=== PATIENT | female | born 1955 | race Caucasian/White ===

== ENCOUNTER 2020-06-03 11:48 | Inpatient (IN) | payer OTHER ==
--- NOTE | 2020-06-03 12:42 | EDM.PDOC ---
ED HPI GENERAL MEDICAL PROBLEM - General Chief Complaint: General Stated Complaint: CONFUSION/WEIGHT LOSS/NOT EATING OR DRINKING Time Seen by Provider: 06/03/20 12:20 Source of Information: Reports: Patient History Limitations: Reports: No Limitations - History of Present Illness INITIAL COMMENTS - FREE TEXT/NARRATIVE: pt reports that she has had weakness and recurrent headaches that she has seen a nuerologist in [facility] and has had a recent MRI and CT head which she reports had "an abnormality which is probably form " the pt is a poor historian and family is with the pt who reports the pt has had a cognitive decline over the past week with dizziness, no falls, pt denies any headaches at this time no hemiplegia, no nausea, no vomiting, no fever, no chills, pt is reporting that she is drinking "alot" the family reports the pt is not drinking much fluids - Related Data Allergies Allergy/AdvReac Type Severity Reaction Status Date / Time No Known Allergies Allergy Verified 10/20/14 10:49 Home Meds: Home Meds Famotidine 20 mg PO DAILY 06/03/20 [History] Ketorolac [Toradol] 10 mg PO ASDIRECTED 06/03/20 [History] Metoclopramide [Reglan] 10 mg PO ASDIRECTED 06/03/20 [History] Topiramate 50 mg PO BID 06/03/20 [History] ZOLMitriptan [Zomig] 2.5 mg PO ASDIRECTED 06/03/20 [History] diazePAM [Valium] 5 mg PO ASDIRECTED 06/03/20 [History] Past Medical History Gastrointestinal History: Reports: GERD Neurological History: Reports: Migraines - Past Surgical History GI Surgical History: Reports: Cholecystectomy Social & Family History - Tobacco Use Smoking Status *Q: Current Every Day Smoker Years of Tobacco use: 40 Packs/Tins Daily: 0.5 - Caffeine Use Caffeine Use: Reports: None - Recreational Drug Use Recreational Drug Type: Reports: Marijuana/Hashish ED ROS GENERAL - Review of Systems Review Of Systems: See Below Constitutional: Denies: Fever, Chills Cardiovascular: Denies: Chest Pain Endocrine: Reports: Fatigue GI/Abdominal: Denies: Abdominal Pain Musculoskeletal: Denies: Neck Pain, Shoulder Pain Neurological: Reports: Confusion, Dizziness ED EXAM, GENERAL - Physical Exam Exam: See Below Exam Limited By: No Limitations General Appearance: Alert, WD/WN, Other (slow responses, but responds appropriately) Throat/Mouth: Normal Inspection, Normal Lips, Normal Teeth, Normal Gums, Normal Oropharynx, Normal Voice, No Airway Compromise Head: Atraumatic, Normocephalic Neck: Normal Inspection, Supple, Non-Tender, Full Range of Motion Respiratory/Chest: No Respiratory Distress, Lungs Clear, Normal Breath Sounds, No Accessory Muscle Use, Chest Non-Tender Cardiovascular: Normal Peripheral Pulses, Regular Rate, Rhythm, No Edema, No Gallop, No JVD, No Murmur, No Rub GI/Abdominal: Normal Bowel Sounds, Soft, Non-Tender, No Organomegaly, No Distention, No Abnormal Bruit, No Mass Back Exam: Normal Inspection, Full Range of Motion, NT Extremities: Normal Inspection, Normal Range of Motion, Non-Tender, Normal Capillary Refill, No Pedal Edema Neurological: Alert, Oriented, CN II-XII Intact, Other (slow response) Skin Exam: Warm, Dry, Intact EKG INTERPRETATION EKG Date: 06/03/20 Time: 12:18 Rhythm: NSR [place]: LAD-Left [place] Deviation P-Wave: Present QRS: Normal EKG Interpretation Comments: mild depression 4-6, mild II,III, avf early repol Course - Vital Signs Last Recorded V/S: Last Vital Signs Temp 98.3 F 06/03/20 11:56 Pulse 83 06/03/20 11:56 Resp 20 06/03/20 11:56 BP 140/89 06/03/20 11:56 Pulse Ox 99 06/03/20 11:56 - Orders/Labs/Meds Orders: Active Orders 24 hr Category Date Time Status EKG Documentation Completion [RC] ASDIRECTED Care 06/03/20 12:06 Active CULTURE URINE [RM] Stat Lab 06/03/20 12:30 Received PTH, INTACT [REF] Stat Lab 06/03/20 13:30 Ordered Sodium Chloride 0.9% [Normal Saline] 1,000 ml Med 06/03/20 13:15 Active IV ASDIRECTED EKG 12 Lead [EK] Stat Ther 06/03/20 12:05 Ordered Medication Orders Sodium Chloride (Normal Saline) 1,000 mls @ 1,000 mls/hr IV ASDIRECTED ETHEL Last Admin: 06/03/20 13:15 Dose: 1,000 mls/hr Documented by: MONICA Labs: Laboratory Tests 06/03/20 06/03/20 06/03/20 Range/Units 12:15 12:15 12:30 WBC 6.65 (3.98-10.04) K/mm3 RBC 4.15 (3.98-5.22) M/mm3 Hgb 13.1 (11.2-15.7) gm/dl Hct 37.9 (34.1-44.9) % MCV 91.3 (79.4-94.8) fl MCH 31.6 (25.6-32.2) pg MCHC 34.6 (32.2-35.5) g/dl RDW Std Deviation 40.2 (36.4-46.3) fL Plt Count 310 (182-369) K/mm3 MPV 9.8 (9.4-12.3) fl Neut % (Auto) 60.5 (34.0-71.1) % Lymph % (Auto) 28.4 (19.3-51.7) % Chase % (Auto) 9.2 (4.7-12.5) % Eos % (Auto) 1.1 (0.7-5.8) Baso % (Auto) 0.6 (0.1-1.2) % Neut # (Auto) 4.03 (1.56-6.13) K/mm3 Lymph # (Auto) 1.89 (1.18-3.74) K/mm3 Chase # (Auto) 0.61 H (0.24-0.36) K/mm3 Eos # (Auto) 0.07 (0.04-0.36) K/mm3 Baso # (Auto) 0.04 (0.01-0.08) K/mm3 Sodium 143 (136-145) mEq/L Potassium 2.6 L (3.5-5.1) mEq/L Chloride 100 (98-107) mEq/L Carbon Dioxide 33 H (21-32) mEq/L Anion Gap 12.6 (5-15) BUN 45 H (7-18) mg/dL Creatinine 1.6 H (0.55-1.02) mg/dL Est Cr Clr Drug Dosing 28.19 mL/min Estimated GFR (MDRD) 33 (>60) mL/min BUN/Creatinine Ratio 28.1 H (14-18) Glucose 140 H (80-115) mg/dL Calcium 12.9 H (8.5-10.1) mg/dL Total Bilirubin 0.4 (0.2-1.0) mg/dL AST 20 (15-37) U/L ALT 25 (14-59) U/L Alkaline Phosphatase 66 (46-116) U/L Troponin I 0.020 (0.00-0.056) ng/mL Total Protein 7.8 (6.4-8.2) g/dl Albumin 4.1 (3.4-5.0) g/dl Globulin 3.7 gm/dL Albumin/Globulin Ratio 1.1 (1-2) TSH 3rd Generation 1.197 (0.358-3.74) uIU/mL Urine Color Yellow (Yellow) Urine Appearance Clear (Clear) Urine pH 6.5 (5.0-8.0) Ur Specific [place] 1.020 (1.005-1.030) Urine Protein 1+ H (Negative) Urine Glucose (UA) Negative (Negative) Urine Ketones 1+ H (Negative) Urine Occult Blood 1+ H (Negative) Urine Nitrite Negative (Negative) Urine Bilirubin 1+ H (Negative) Urine Urobilinogen 0.2 (0.2-1.0) Ur Leukocyte Esterase 1+ H (Negative) U Hyaline Cast (Auto) 30-40 H (0-5) /lpf Urine RBC 0-5 (0-5) /hpf Urine WBC 0-5 (0-5) /hpf Ur Squamous Epith Cells 0-5 (0-5) /hpf Urine Bacteria Few (FEW) /hpf Urine Mucus Few (FEW) /hpf Urine Opiates Screen (FVSWZK=443) Ur Buprenorphine Scrn (CUTOFF=10) Ur Oxycodone Screen (KMW1XD=091) Urine Methadone Screen (VBZGUJ=219) Ur Propoxyphene Screen (ZDWETI=182) Ur Barbiturates Screen (UVPEPG=361) Ur Tricyclics Screen (HBUJUG=817) Ur Phencyclidine Scrn (CUTOFF=25) Ur Amphetamine Screen (RTXOMQ=324) U Methamphetamines Scrn (QRMFTD=628) U Benzodiazepines Scrn (DACVLJ=797) U Cocaine Metab Screen (DFNYNS=961) U Marijuana (THC) Screen (CUTOFF=50) 06/03/20 Range/Units 12:39 WBC (3.98-10.04) K/mm3 RBC (3.98-5.22) M/mm3 Hgb (11.2-15.7) gm/dl Hct (34.1-44.9) % MCV (79.4-94.8) fl MCH (25.6-32.2) pg MCHC (32.2-35.5) g/dl RDW Std Deviation (36.4-46.3) fL Plt Count (182-369) K/mm3 MPV (9.4-12.3) fl Neut % (Auto) (34.0-71.1) % Lymph % (Auto) (19.3-51.7) % Chase % (Auto) (4.7-12.5) % Eos % (Auto) (0.7-5.8) Baso % (Auto) (0.1-1.2) % Neut # (Auto) (1.56-6.13) K/mm3 Lymph # (Auto) (1.18-3.74) K/mm3 Chase # (Auto) (0.24-0.36) K/mm3 Eos # (Auto) (0.04-0.36) K/mm3 Baso # (Auto) (0.01-0.08) K/mm3 Sodium (136-145) mEq/L Potassium (3.5-5.1) mEq/L Chloride (98-107) mEq/L Carbon Dioxide (21-32) mEq/L Anion Gap (5-15) BUN (7-18) mg/dL Creatinine (0.55-1.02) mg/dL Est Cr Clr Drug Dosing mL/min Estimated GFR (MDRD) (>60) mL/min BUN/Creatinine Ratio (14-18) Glucose (80-115) mg/dL Calcium (8.5-10.1) mg/dL Total Bilirubin (0.2-1.0) mg/dL AST (15-37) U/L ALT (14-59) U/L Alkaline Phosphatase (46-116) U/L Troponin I (0.00-0.056) ng/mL Total Protein (6.4-8.2) g/dl Albumin (3.4-5.0) g/dl Globulin gm/dL Albumin/Globulin Ratio (1-2) TSH 3rd Generation (0.358-3.74) uIU/mL Urine Color (Yellow) Urine Appearance (Clear) Urine pH (5.0-8.0) Ur Specific [place] (1.005-1.030) Urine Protein (Negative) Urine Glucose (UA) (Negative) Urine Ketones (Negative) Urine Occult Blood (Negative) Urine Nitrite (Negative) Urine Bilirubin (Negative) Urine Urobilinogen (0.2-1.0) Ur Leukocyte Esterase (Negative) U Hyaline Cast (Auto) (0-5) /lpf Urine RBC (0-5) /hpf Urine WBC (0-5) /hpf Ur Squamous Epith Cells (0-5) /hpf Urine Bacteria (FEW) /hpf Urine Mucus (FEW) /hpf Urine Opiates Screen Negative (TDVYYC=345) Ur Buprenorphine Scrn Negative (CUTOFF=10) Ur Oxycodone Screen Negative (CXR4IW=516) Urine Methadone Screen Negative (RTRZXQ=426) Ur Propoxyphene Screen Negative (IBVIQR=196) Ur Barbiturates Screen Negative (NIRAJR=580) Ur Tricyclics Screen Negative (MYXVQH=569) Ur Phencyclidine Scrn Negative (CUTOFF=25) Ur Amphetamine Screen Negative (OXJFBX=439) U Methamphetamines Scrn Negative (XPDQLK=428) U Benzodiazepines Scrn Negative (AUZDRW=688) U Cocaine Metab Screen Negative (DSHKXZ=354) U Marijuana (THC) Screen Negative (CUTOFF=50) Meds: Medications Generic Name Dose Route Start Last Admin Trade Name Freq PRN Reason Stop Dose Admin Sodium Chloride 1,000 mls @ 1,000 mls/hr 06/03/20 13:15 06/03/20 13:15 Normal Saline IV 1,000 mls/hr ASDIRECTED ETHEL Administration Discontinued Medications Generic Name Dose Route Start Last Admin Trade Name Freq PRN Reason Stop Dose Admin Potassium Chloride 40 meq 06/03/20 13:02 06/03/20 13:15 Klor-Con M20 PO 06/03/20 13:03 40 meq ONETIME ONE Administration head CT showed nothing acute per radiologist reports - Re-Assessments/Exams Free Text/Narrative Re-Assessment/Exam: 06/03/20 12:47 CXR --> interp by me NAD Free Text/Narrative Re-Assessment/Exam: 06/03/20 13:[address] Clinton who agrees to admit to observation for hypercalcemia and mental status changes Departure - Departure Time of Disposition: 13:39 Disposition: Refer to Observation Condition: Good Clinical Impression: Hypercalcemia, Hypokalemia Altered mental status Qualifiers: Altered mental status type: unspecified Qualified Code(s): R41.82 - Altered mental status, unspecified - Discharge Information Referrals: Jere Casanova MD [Primary Care Provider] - Forms: ED Department Discharge Sepsis Event Note (ED) - Evaluation Sepsis Screening Result: No Definite Risk - Focused Exam Vital Signs: Vital Signs Temp Pulse Resp BP Pulse Ox 06/03/20 11:56 98.3 F 83 20 140/89 99 - My Orders Last 24 Hours: My Active Orders 06/03/20 12:05 EKG 12 Lead [EK] Stat 06/03/20 12:06 EKG Documentation Completion [RC] ASDIRECTED 06/03/20 12:30 CULTURE URINE [RM] Stat 06/03/20 13:15 Sodium Chloride 0.9% [Normal Saline] 1,000 ml IV ASDIRECTED 06/03/20 13:30 PTH, INTACT [REF] Stat - Assessment/Plan Last 24 Hours: My Active Orders 06/03/20 12:05 EKG 12 Lead [EK] Stat 06/03/20 12:06 EKG Documentation Completion [RC] ASDIRECTED 06/03/20 12:30 CULTURE URINE [RM] Stat 06/03/20 13:15 Sodium Chloride 0.9% [Normal Saline] 1,000 ml IV ASDIRECTED 06/03/20 13:30 PTH, INTACT [REF] Stat
--- NOTE | 2020-06-03 12:58 | CT ---
Head CT Technique: Multiple axial sections through the brain were obtained. Intravenous contrast was not utilized. Comparison: Prior head CT study of 10/20/14. Findings: Ventricles along with basal cisterns and sulci over the convexities are mildly prominent. No abnormal parenchymal densities are seen. No evidence of intracranial hemorrhage. No midline shift or mass-effect is seen. Bone window settings were reviewed. Visualized mastoid sinuses and visualized paranasal sinuses show nothing acute. No acute calvarial finding is seen. Impression: 1. Nothing acute is appreciated on noncontrast head CT study. Diagnostic code #1 This report was dictated in MDT
[2020-06-03] MEDS ORDERED: Potassium Chloride 20 MEQ Tab.ER PO ONE (13:02)
--- NOTE | 2020-06-03 13:12 | CR ---
Chest: 2 views of the chest were obtained. Comparison: No prior chest imaging. Heart size is normal. Tortuous thoracic aorta is seen. Lungs are clear but hyperinflated. Mild degenerative change is seen within the spine. Surgical clips are seen within the upper abdomen. Impression: 1. Emphysematous change. 2. Other findings as noted above. Nothing acute is seen. Diagnostic code #2 This report was dictated in MDT
[2020-06-03] MEDS ORDERED: Sodium Chloride 0.9% 1,000 ML IV SCH (13:15)
--- NOTE | 2020-06-03 16:05 | PCM.HP.2 ---
H&P History of Present Illness - General Date of Service: 06/03/20 Admit Problem/Dx: Admission Diagnosis/Problem Admission Diagnosis/Problem Hypercalcemia/mental status changes. Source of Information: Patient, Family History Limitations: Reports: Altered Mental Status - History of Present Illness Initial Comments - Free Text/Narative: 64 year old female with hx of chronic headaches starting 3 to 4 months ago who started new med 3-4 days ago (injection zomig / ) and has increasing confusion and speech empairment and cognitive confusion. brou ght in by shanon who noticed her stumbling more than usual . 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 no hx of alcoholism but quit drinking 2-3 months ago sec to bilateral global headaches. no nausea but food taste is off and everything is salty . fluid intake reported as good by patient and bad by friends no visual changes /hearing changes/loss of smell / cva signs . hx of prev. mjh use use pattern not known. hypercalcemia and hypokalemia seen on panel. no diuretics and no known parathyroid/ thyroid or renal problems . reports no pain . headaches daily and started on multiple meds including valium/ toprimate/zomig. no real releif of headaches no surgerys. routine health screens normal(breast and mammograms in dec) and ros other diaz unclear and neg. by patient heavy smoker for many years. no oral or swallowing problems and no voice changes Onset of Symptoms: Reports: Gradual Symptom Onset Date: 06/01/20 Duration of Symptoms: Reports: Getting Worse Improves with: Reports: None Worsens with: Reports: None Associated Symptoms: Reports: Confusion - Related Data Allergies/Adverse Reactions: Allergies Allergy/AdvReac Type Severity Reaction Status Date / Time No Known Allergies Allergy Verified 10/20/14 10:49 Home Medications: Home Meds Famotidine 20 mg PO DAILY 06/03/20 [History] Ketorolac [Toradol] 10 mg PO Q6H PRN 06/03/20 [History] Metoclopramide [Reglan] 10 mg PO QID PRN 06/03/20 [History] Topiramate 50 mg PO BID 06/03/20 [History] ZOLMitriptan [Zolmitriptan] 2.5 mg PO ASDIRECTED 06/03/20 [History] diazePAM [Valium] 5 mg PO Q6H PRN 06/03/20 [History] Past Medical History Gastrointestinal History: Reports: None, GERD Neurological History: Reports: Migraines - Past Surgical History GI Surgical History: Reports: Cholecystectomy Social & Family History - Tobacco Use Smoking Status *Q: Current Every Day Smoker Years of Tobacco use: 40 Packs/Tins Daily: 0.5 - Caffeine Use Caffeine Use: Reports: None - Recreational Drug Use Recreational Drug Type: Reports: Marijuana/Hashish H&P Review of Systems - Review of Systems: Review Of Systems: See Below General: Reports: Weakness, Decreased Appetite, Weight Loss HEENT: Reports: No Symptoms Pulmonary: Reports: No Symptoms, Shortness of Breath, Cough Cardiovascular: Reports: No Symptoms Gastrointestinal: Reports: No Symptoms Genitourinary: Reports: No Symptoms Musculoskeletal: Reports: No Symptoms Skin: Reports: No Symptoms Psychiatric: Denies: Hallucinations (Auditory), Hallucinations (Visual) Neurological: Reports: Confusion, Dizziness, Headache, Paresthesia, Trouble Speaking, Difficulty Walking Hematologic/Lymphatic: Reports: No Symptoms Immunologic: Reports: No Symptoms Exam - Exam Exam: See Below - Vital Signs Vital Signs: Last Vital Signs Temp 36.8 C 06/03/20 11:56 Pulse 83 06/03/20 11:56 Resp 20 06/03/20 11:56 BP 140/89 06/03/20 11:56 Pulse Ox 99 06/03/20 11:56 Weight: 48.988 kg - Exam General: Alert, Oriented, 4 HEENT: PERRLA, Hearing Intact, Mucosa Moist & [place], Nares Patent, Normal Nasal Septum, Posterior Pharynx Clear, Conjunctiva Clear, EOMI, EACs Clear, TMs Clear Neck: Supple, Trachea Midline. No: Lymphadenopathy, Thyromegaly Lungs: Clear to Auscultation, Normal Respiratory Effort, Decreased Breath Sounds Cardiovascular: Regular Rate, Regular Rhythm GI/Abdominal Exam: Normal Bowel Sounds, Soft, Non-Tender, No Organomegaly, No Distention, No Abnormal Bruit, No Mass, Pelvis Stable (Female) Exam: Normal External Exam, Normal Speculum Exam, Normal Bimanual Exam, Deferred Rectal (Female) Exam: Normal Exam, Normal Rectal Tone, Deferred Back Exam: Normal Inspection, Full Range of Motion, NT Extremities: Normal Inspection, Normal Range of Motion, Non-Tender, No Pedal Edema, Normal Capillary Refill, Slow Capillary Refill Peripheral Pulses: 1+: Carotid (L), 2+: Carotid (R) Skin: Warm, Dry, Intact, Cool Neurological: Cranial Nerves Intact, Reflexes Equal Bilateral Neuro Extensive - Mental Status: Alert, Oriented x3, Normal Mood/Affect, Normal Cognition. No: Memory Intact Neuro Extensive - Motor, Sensory, Reflexes: CN II-XII Intact, Normal Gait, Normal Reflexes DTR: 0: Tricep (L), Tricep (R), Patella (L), Patella (R), 1+: Bicep (L), Bicep (R), Achilles (L), Achilles (R) Psychiatric: Alert, Normal Affect, Normal Mood Physical Exam Comments:: weight loss and dysarthria evident. - Patient Data Lab Results Last 24 hrs: Laboratory Results - last 24 hr 06/03/20 06/03/20 06/03/20 Range/Units 12:15 12:15 12:30 WBC 6.65 (3.98-10.04) K/mm3 RBC 4.15 (3.98-5.22) M/mm3 Hgb 13.1 (11.2-15.7) gm/dl Hct 37.9 (34.1-44.9) % MCV 91.3 (79.4-94.8) fl MCH 31.6 (25.6-32.2) pg MCHC 34.6 (32.2-35.5) g/dl RDW Std Deviation 40.2 (36.4-46.3) fL Plt Count 310 (182-369) K/mm3 MPV 9.8 (9.4-12.3) fl Neut % (Auto) 60.5 (34.0-71.1) % Lymph % (Auto) 28.4 (19.3-51.7) % [place] % (Auto) 9.2 (4.7-12.5) % Eos % (Auto) 1.1 (0.7-5.8) Baso % (Auto) 0.6 (0.1-1.2) % Neut # (Auto) 4.03 (1.56-6.13) K/mm3 Lymph # (Auto) 1.89 (1.18-3.74) K/mm3 [place] # (Auto) 0.61 H (0.24-0.36) K/mm3 Eos # (Auto) 0.07 (0.04-0.36) K/mm3 Baso # (Auto) 0.04 (0.01-0.08) K/mm3 Sodium 143 (136-145) mEq/L Potassium 2.6 L (3.5-5.1) mEq/L Chloride 100 (98-107) mEq/L Carbon Dioxide 33 H (21-32) mEq/L Anion Gap 12.6 (5-15) BUN 45 H (7-18) mg/dL Creatinine 1.6 H (0.55-1.02) mg/dL Est Cr Clr Drug Dosing 28.19 mL/min Estimated GFR (MDRD) 33 (>60) mL/min BUN/Creatinine Ratio 28.1 H (14-18) Glucose 140 H (80-115) mg/dL Calcium 12.9 H (8.5-10.1) mg/dL Total Bilirubin 0.4 (0.2-1.0) mg/dL AST 20 (15-37) U/L ALT 25 (14-59) U/L Alkaline Phosphatase 66 (46-116) U/L Troponin I 0.020 (0.00-0.056) ng/mL Total Protein 7.8 (6.4-8.2) g/dl Albumin 4.1 (3.4-5.0) g/dl Globulin 3.7 gm/dL Albumin/Globulin Ratio 1.1 (1-2) TSH 3rd Generation 1.197 (0.358-3.74) uIU/mL Urine Color Yellow (Yellow) Urine Appearance Clear (Clear) Urine pH 6.5 (5.0-8.0) Ur Specific [place] 1.020 (1.005-1.030) Urine Protein 1+ H (Negative) Urine Glucose (UA) Negative (Negative) Urine Ketones 1+ H (Negative) Urine Occult Blood 1+ H (Negative) Urine Nitrite Negative (Negative) Urine Bilirubin 1+ H (Negative) Urine Urobilinogen 0.2 (0.2-1.0) Ur Leukocyte Esterase 1+ H (Negative) U Hyaline Cast (Auto) 30-40 H (0-5) /lpf Urine RBC 0-5 (0-5) /hpf Urine WBC 0-5 (0-5) /hpf Ur Squamous Epith Cells 0-5 (0-5) /hpf Urine Bacteria Few (FEW) /hpf Urine Mucus Few (FEW) /hpf Urine Opiates Screen (MXJSIK=306) Ur Buprenorphine Scrn (CUTOFF=10) Ur Oxycodone Screen (ZRT5UC=322) Urine Methadone Screen (PIAPZK=760) Ur Propoxyphene Screen (LOBGXF=814) Ur Barbiturates Screen (EPEYMV=215) Ur Tricyclics Screen (TWNGBB=482) Ur Phencyclidine Scrn (CUTOFF=25) Ur Amphetamine Screen (XAZAZZ=037) U Methamphetamines Scrn (EUXEZQ=760) U Benzodiazepines Scrn (NCWDOQ=432) U Cocaine Metab Screen (XXMCRW=421) U Marijuana (THC) Screen (CUTOFF=50) 06/03/20 Range/Units 12:39 WBC (3.98-10.04) K/mm3 RBC (3.98-5.22) M/mm3 Hgb (11.2-15.7) gm/dl Hct (34.1-44.9) % MCV (79.4-94.8) fl MCH (25.6-32.2) pg MCHC (32.2-35.5) g/dl RDW Std Deviation (36.4-46.3) fL Plt Count (182-369) K/mm3 MPV (9.4-12.3) fl Neut % (Auto) (34.0-71.1) % Lymph % (Auto) (19.3-51.7) % [place] % (Auto) (4.7-12.5) % Eos % (Auto) (0.7-5.8) Baso % (Auto) (0.1-1.2) % Neut # (Auto) (1.56-6.13) K/mm3 Lymph # (Auto) (1.18-3.74) K/mm3 [place] # (Auto) (0.24-0.36) K/mm3 Eos # (Auto) (0.04-0.36) K/mm3 Baso # (Auto) (0.01-0.08) K/mm3 Sodium (136-145) mEq/L Potassium (3.5-5.1) mEq/L Chloride (98-107) mEq/L Carbon Dioxide (21-32) mEq/L Anion Gap (5-15) BUN (7-18) mg/dL Creatinine (0.55-1.02) mg/dL Est Cr Clr Drug Dosing mL/min Estimated GFR (MDRD) (>60) mL/min BUN/Creatinine Ratio (14-18) Glucose (80-115) mg/dL Calcium (8.5-10.1) mg/dL Total Bilirubin (0.2-1.0) mg/dL AST (15-37) U/L ALT (14-59) U/L Alkaline Phosphatase (46-116) U/L Troponin I (0.00-0.056) ng/mL Total Protein (6.4-8.2) g/dl Albumin (3.4-5.0) g/dl Globulin gm/dL Albumin/Globulin Ratio (1-2) TSH 3rd Generation (0.358-3.74) uIU/mL Urine Color (Yellow) Urine Appearance (Clear) Urine pH (5.0-8.0) Ur Specific [place] (1.005-1.030) Urine Protein (Negative) Urine Glucose (UA) (Negative) Urine Ketones (Negative) Urine Occult Blood (Negative) Urine Nitrite (Negative) Urine Bilirubin (Negative) Urine Urobilinogen (0.2-1.0) Ur Leukocyte Esterase (Negative) U Hyaline Cast (Auto) (0-5) /lpf Urine RBC (0-5) /hpf Urine WBC (0-5) /hpf Ur Squamous Epith Cells (0-5) /hpf Urine Bacteria (FEW) /hpf Urine Mucus (FEW) /hpf Urine Opiates Screen Negative (SEGTBE=655) Ur Buprenorphine Scrn Negative (CUTOFF=10) Ur Oxycodone Screen Negative (JYE0PI=252) Urine Methadone Screen Negative (AMFCCE=156) Ur Propoxyphene Screen Negative (QPKRRZ=278) Ur Barbiturates Screen Negative (RHBMSH=419) Ur Tricyclics Screen Negative (UUFUFW=354) Ur Phencyclidine Scrn Negative (CUTOFF=25) Ur Amphetamine Screen Negative (NNJMKF=328) U Methamphetamines Scrn Negative (JICYNI=604) U Benzodiazepines Scrn Negative (LGLJBY=418) U Cocaine Metab Screen Negative (WXJPTQ=384) U Marijuana (THC) Screen Negative (CUTOFF=50) Result Diagrams: 06/03/20 12:15 06/03/20 12:15 Sepsis Event Note - Evaluation Sepsis Screening Result: No Definite Risk - Focused Exam Vital Signs: Vital Signs Temp Pulse Resp BP Pulse Ox 06/03/20 11:56 36.8 C 83 20 140/89 99 Date Exam was Performed: 06/03/20 Time Exam was Performed: 15:55 - Problem List (1) Headache on top of head SNOMED Code(s): 27130481 ICD Code: R51 - HEADACHE Status: Acute Priority: Medium Current Visit: Yes Onset Date: ~06/03/20 (2) Altered mental status SNOMED Code(s): 976767600 ICD Code: R41.82 - ALTERED MENTAL STATUS, UNSPECIFIED Status: Acute Priority: High Current Visit: Yes Onset Date: ~06/01/20 Qualifiers: Altered mental status type: disorientation Qualified Code(s): R41.0 - Disorientation, unspecified (3) Hypercalcemia SNOMED Code(s): 82214395 ICD Code: E83.52 - HYPERCALCEMIA Status: Acute Priority: Medium Current Visit: Yes Onset Date: ~06/03/20 Problem Details: bring down since symptomatic with calcitonin (4) Hypokalemia SNOMED Code(s): 28957460 ICD Code: E87.6 - HYPOKALEMIA Status: Acute Priority: Medium Current Visit: Yes Onset Date: ~06/03/20 Problem Details: replace with potassium po and i.v. cause unknown and check cortisol (5) Congenital lesion of brain SNOMED Code(s): 12561091 ICD Code: Q04.9 - CONGENITAL MALFORMATION OF BRAIN, UNSPECIFIED Status: Acute Priority: Medium Current Visit: Yes Onset Date: ~06/03/20 Problem Details: repeat ct scan of head sec to hypercalcemia /// no lesions seen Problem List Initiated/Reviewed/Updated: Yes Orders Last 24hrs: Active Orders 24 hr Category Date Time Status Patient Status [ADT] Routine ADT 06/03/20 14:50 Active EKG Documentation Completion [RC] ASDIRECTED Care 06/03/20 12:06 Active CULTURE URINE [RM] Stat Lab 06/03/20 12:30 Received PTH, INTACT [REF] Stat Lab 06/03/20 12:15 Received Sodium Chloride 0.9% [Normal Saline] 1,000 ml Med 06/03/20 13:15 Active IV ASDIRECTED EKG 12 Lead [EK] Stat Ther 06/03/20 12:05 Ordered Medication Orders Sodium Chloride (Normal Saline) 1,000 mls @ 1,000 mls/hr IV ASDIRECTED [facility] Last Admin: 06/03/20 13:15 Dose: 1,000 mls/hr Documented by: KATHARINET 1// hypercalcemia i.v and serial calcium measures/ nasal calcitonin. recheck in 6 ours. d5.pth/ca.phs.ekg.vit dordered. urine calcium/chest xray /ct scan cortisol ordered. 2// renal insuff or hypercalcemia related elavation of creatinine. could also be dehydrated. d5l.r at 250 hour. 3// hypokalemia . replacement started and rule out addisons ct scan of abd and chest . 4// copd nicotine patch Assessment/Plan Comment:: Sodium Chloride (Normal Saline) 1,000 mls @ 1,000 mls/hr IV ASDIRECTED [facility] Last Admin: 06/03/20 13:15 Dose: 1,000 mls/hr Documented by: KATHARINET 1// hypercalcemia i.v and serial calcium measures/ nasal calcitonin. recheck in 6 ours. d5.pth/ca.phs.ekg.vit dordered. urine calcium/chest xray /ct scan cortisol ordered. 2// renal insuff or hypercalcemia related elavation of creatinine. could also be dehydrated. d5l.r at 250 hour. 3// hypokalemia . replacement started and rule out addisons ct scan of abd and chest . 4// copd nicotine patch - Mortality Measure Prognosis:: Good
[2020-06-03] MEDS ORDERED: LORazepam 2 MG/ML SDV IV PRN (16:26)
[2020-06-03] MEDS ORDERED: Lactated Ringers 1,000 ML IV SCH (16:30)
[2020-06-03 17:33] LABS: VITAMIN D,25-HYDROXY 68.3 ng/ml (30.0-100.0)
[2020-06-03] MEDS: Dextrose 5%-Lact Ringers w/KCl 1,000 ML IV SCH (18:10)
[2020-06-03] MEDS: Potassium Chloride 10 MEQ in Premix Bag 1 BAG IV SCH ×3 (18:10→23:08)
[2020-06-03] MEDS: Calcitonin (Salmon) 200 Units/ML 2 ML MDV SUBCUT SCH (18:39)
[2020-06-03] MEDS: Enoxaparin 40 MG/0.4 ML Syringe SUBCUT SCH (18:39)
[2020-06-03] MEDS: Nicotine 14 MG/24 Hr Patch TRDERM SCH (18:45)
[2020-06-03] MEDS: Famotidine 20 MG Tab PO SCH (18:46)
[2020-06-03] MEDS: Potassium Chloride 20 MEQ Tab.ER PO SCH (20:38)
[2020-06-03] MEDS ORDERED: Zolpidem 5 MG Tab PO PRN (21:00)
[2020-06-04] MEDS: Potassium Chloride 10 MEQ in Premix Bag 1 BAG IV SCH ×2 (00:22→02:10)
[2020-06-04] MEDS: Dextrose 5%-Lact Ringers w/KCl 1,000 ML IV SCH (03:12)
[2020-06-04] MEDS: Calcitonin (Salmon) 200 Units/ML 2 ML MDV SUBCUT SCH (06:15)
[2020-06-04] MEDS: Famotidine 20 MG Tab PO SCH (08:19)
[2020-06-04] MEDS: Potassium Chloride 20 MEQ Tab.ER PO SCH ×3 (08:19→20:06)
[2020-06-04] MEDS: Nicotine 14 MG/24 Hr Patch TRDERM SCH (08:23)
[2020-06-04] MEDS: Enoxaparin 40 MG/0.4 ML Syringe SUBCUT SCH (08:24)
--- NOTE | 2020-06-04 14:23 | PCM.PN ---
- General Info Date of Service: 06/04/20 Admission Dx/Problem (Free Text): Admission Diagnosis/Problem Admission Diagnosis/Problem Hypercalcemia/mental status changes. Subjective Update: 06/04/20 afebrile vss i/o s appropriate to hydration. ca decreased to 10.4 calcitonin dced after second dose. / i.v decreased to 75 cc hour. k now 3.5 p.e. bouncey and word finding difficulties but better and less stammering and stuttering than yest. rest of exam normal discussed causes of hypercalcemia and new med for migraines and topimax being held for now . affect not normal per freind and will monitor when discharged for recurrent hypercalcemia . assess hypercalcemia better. hypokalemia better. confusion better . plan same repeat ca in am walk and reorient today - Review of Systems General: Reports: No Symptoms HEENT: Reports: No Symptoms Pulmonary: Reports: No Symptoms Cardiovascular: Reports: No Symptoms Gastrointestinal: Reports: No Symptoms Genitourinary: Reports: No Symptoms Musculoskeletal: Reports: No Symptoms Skin: Reports: No Symptoms Neurological: Reports: No Symptoms Psychiatric: Reports: No Symptoms - Patient Data Vitals - Most Recent: Last Vital Signs Temp 36.5 C 06/04/20 12:16 Pulse 64 06/04/20 12:16 Resp 16 06/04/20 12:16 BP 120/83 06/04/20 12:16 Pulse Ox 100 06/04/20 12:16 Weight - Most Recent: 46.629 kg I&O - Last 24 Hours: Intake & Output 06/03/20 06/04/20 06/04/20 22:59 06:59 14:59 Intake Total 1882 995 Output Total 1250 700 Balance 632 295 Lab Results Last 24 Hours: Laboratory Results - last 24 hr 06/03/20 06/03/20 06/03/20 Range/Units 12:12 12:15 16:09 D-Dimer, Quantitative 0.48 (0.19-0.50) mg/L Sodium (136-145) mEq/L Potassium (3.5-5.1) mEq/L Chloride (98-107) mEq/L Carbon Dioxide (21-32) mEq/L Anion Gap (5-15) BUN (7-18) mg/dL Creatinine (0.55-1.02) mg/dL Est Cr Clr Drug Dosing mL/min Estimated GFR (MDRD) (>60) mL/min BUN/Creatinine Ratio (14-18) Glucose (80-115) mg/dL Calcium (8.5-10.1) mg/dL Phosphorus 1.9 L (2.6-4.7) mg/dL Vitamin B12 (193-986) pg/ml Vitamin D 25-Hydroxy 68.3 (30.0-100.0) ng/ml SARS-CoV-2 RNA (RT-PCR) Negative (NEGATIVE) 06/03/20 06/03/20 06/04/20 Range/Units 17:42 18:15 05:35 D-Dimer, Quantitative (0.19-0.50) mg/L Sodium 144 143 (136-145) mEq/L Potassium 2.8 L 3.4 L (3.5-5.1) mEq/L Chloride 103 108 H (98-107) mEq/L Carbon Dioxide 32 29 (21-32) mEq/L Anion Gap 11.8 9.4 (5-15) BUN 39 H 25 H (7-18) mg/dL Creatinine 1.3 H 1.1 H (0.55-1.02) mg/dL Est Cr Clr Drug Dosing 34.70 39.03 mL/min Estimated GFR (MDRD) 42 50 (>60) mL/min BUN/Creatinine Ratio 30.0 H 22.7 H (14-18) Glucose 97 160 H (80-115) mg/dL Calcium 12.7 H 10.1 D (8.5-10.1) mg/dL Phosphorus (2.6-4.7) mg/dL Vitamin B12 3139 H (193-986) pg/ml Vitamin D 25-Hydroxy (30.0-100.0) ng/ml SARS-CoV-2 RNA (RT-PCR) (NEGATIVE) Med Orders - Current: Current Medications Enoxaparin Sodium (Lovenox) 40 mg SUBCUT DAILY [facility] Last Admin: 06/04/20 08:24 Dose: 40 mg Documented by: Famotidine (Pepcid) 20 mg PO DAILY [facility] Last Admin: 06/04/20 08:19 Dose: 20 mg Documented by: Lorazepam (Ativan) 1 mg IV Q6H PRN PRN Reason: Anxiety Miscellaneous Information (Remove Patch) 0 ea TRDERM DAILY [facility] Last Admin: 06/04/20 08:20 Dose: 1 ea Documented by: Nicotine (Habitrol) 14 mg TRDERM DAILY [facility] Last Admin: 06/04/20 08:23 Dose: 14 mg Documented by: Potassium Chloride (Klor-Con M20) 20 meq PO TID ETHEL Stop: 06/04/20 23:00 Last Admin: 06/04/20 08:19 Dose: 20 meq Documented by: Potassium Chloride (Klor-Con M20) 20 meq PO DAILY [facility] Zolpidem Tartrate (Ambien) 5 mg PO BEDTIME PRN PRN Reason: Sleep Discontinued Medications Calcitonin Echo (Miacalcin) 200 units SUBCUT Q12H [facility] Last Admin: 06/04/20 06:15 Dose: 200 units Documented by: Sodium Chloride (Normal Saline) 1,000 mls @ 1,000 mls/hr IV ASDIRECTED [facility] Last Admin: 06/03/20 13:15 Dose: 1,000 mls/hr Documented by: Lactated Ringer's (Ringers, Lactated) 1,000 mls @ 125 mls/hr IV ASDIRECTED [facility] Potassium Cl/Dextrose/Lact Ringer's (D5 Lr With 20 Meq Kcl) 1,000 mls @ 125 mls/hr IV ASDIRECTED [facility] Last Admin: 06/04/20 03:12 Dose: 125 mls/hr Documented by: Potassium Chloride 10 meq/ (Premix) 100 mls @ 100 mls/hr IV Q1H [facility] Stop: 06/03/20 22:59 Last Admin: 06/04/20 02:10 Dose: Not Given Documented by: Potassium Chloride (Klor-Con M20) 40 meq PO ONETIME ONE Stop: 06/03/20 13:03 Last Admin: 06/03/20 13:15 Dose: 40 meq Documented by: - Exam General: Alert, Oriented HEENT: Pupils Equal, Pupils Reactive, EOMI, Mucous Membr. Moist/[place] Neck: Supple Lungs: Clear to Auscultation, Normal Respiratory Effort Cardiovascular: Regular Rate, Regular Rhythm GI/Abdominal Exam: Normal Bowel Sounds, Soft, Non-Tender, No Organomegaly, No Distention, No Abnormal Bruit, No Mass, Pelvis Stable (Female) Exam: Normal External Exam, Normal Speculum Exam, Normal Bimanual Exam Back Exam: Normal Inspection, Full Range of Motion Extremities: Normal Inspection, Normal Range of Motion, Non-Tender, No Pedal Edema, Normal Capillary Refill Skin: Warm, Dry, Intact Wound/Incisions: Healing Well Neurological: No New Focal Deficit Psy/Mental Status: Alert, Normal Affect, Normal Mood Sepsis Event Note - Evaluation Sepsis Screening Result: No Definite Risk - Focused Exam Vital Signs: Vital Signs Temp Pulse Resp BP Pulse Ox 06/04/20 12:16 36.5 C 64 16 120/83 100 06/04/20 08:33 36.5 C 53 L 20 132/77 99 06/04/20 07:39 36.8 C 57 L 16 124/73 97 06/04/20 03:16 36.6 C 60 18 119/68 97 Date Exam was Performed: 06/04/20 Time Exam was Performed: 14:18 - Problem List & Annotations (1) Headache on top of head SNOMED Code(s): 64031657 Code(s): R51 - HEADACHE Status: Acute Priority: Medium Current Visit: Yes Onset Date: ~06/03/20 (2) Altered mental status SNOMED Code(s): 778513116 Code(s): R41.82 - ALTERED MENTAL STATUS, UNSPECIFIED Status: Acute Priority: High Current Visit: Yes Onset Date: ~06/01/20 Qualifiers: Altered mental status type: disorientation Qualified Code(s): R41.0 - Disorientation, unspecified Annotation/Comment:: improved speech and cognition and no other changes on neuro exam (3) Hypercalcemia SNOMED Code(s): 59015849 Code(s): E83.52 - HYPERCALCEMIA Status: Acute Priority: High Current Visit: Yes Onset Date: ~06/03/20 Annotation/Comment:: bring down since symptomatic with calcitonin (4) Hypokalemia SNOMED Code(s): 83002584 Code(s): E87.6 - HYPOKALEMIA Status: Acute Priority: Medium Current Visit: Yes Onset Date: ~06/03/20 Annotation/Comment:: replace with potassium po and i.v. cause unknown and check cortisol (5) Congenital lesion of brain SNOMED Code(s): 65471244 Code(s): Q04.9 - CONGENITAL MALFORMATION OF BRAIN, UNSPECIFIED Status: Acute Priority: Medium Current Visit: Yes Onset Date: ~06/03/20 Annotation/Comment:: repeat ct scan of head sec to hypercalcemia /// no lesions seen - Problem List Review Problem List Initiated/Reviewed/Updated: Yes - My Orders Last 24 Hours: My Active Orders 06/03/20 16:26 Oxygen Therapy [RC] PRN Up With Assistance [RC] ASDIRECTED VTE/DVT Education [RC] DAILY Vital Signs [RC] Q4HR LORazepam [Ativan] 1 mg IV Q6H PRN Resuscitation Status Routine 06/03/20 16:27 Cardiac Monitoring [RC] CONTINUOUS Intake and Output [RC] 04,16 06/03/20 16:30 Enoxaparin [Lovenox] 40 mg SUBCUT DAILY Famotidine [Pepcid] 20 mg PO DAILY Nicotine [Habitrol] 14 mg TRDERM DAILY 06/03/20 16:36 ALDOSTERONE, URINE Urgent 06/03/20 16:49 ALDOSTERONE/RENIN RATIO [REF] Urgent RENIN ACTIVITY, PLASMA [REF] Urgent 06/03/20 16:50 CORTISOL [REF] Routine 06/03/20 Dinner Regular Diet [DIET] 06/03/20 21:00 Potassium Chloride [Klor-Con M20] 20 meq PO TID Zolpidem [Ambien] 5 mg PO BEDTIME PRN 06/03/20 22:46 Communication Order [RC] STAT 06/03/20 23:52 Patient Status [ADT] Routine 06/04/20 00:35 CALCIUM, URINE Urgent CHLORIDE, URINE Urgent 06/04/20 09:00 Remove Patch 0 ea TRDERM DAILY 06/05/20 05:11 BASIC METABOLIC PANEL,BMP [CHEM] Routine - Assessment Assessment:: hypercalcemia improved. decreased i.v and stopped calcitonin. altered mental status improved. hypokamia improved .boh - Plan Plan:: Sodium Chloride (Normal Saline) 1,000 mls @ 1,000 mls/hr IV ASDIRECTED [facility] Last Admin: 06/03/20 13:15 Dose: 1,000 mls/hr Documented by: MONICA 1// hypercalcemia i.v and serial calcium measures/ nasal calcitonin. recheck in 6 ours. d5.pth/ca.phs.ekg.vit dordered. urine calcium/chest xray /ct scan cortisol ordered. 2// renal insuff or hypercalcemia related elavation of creatinine. could also be dehydrated. d5l.r at 250 hour. 3// hypokalemia . replacement started and rule out addisons ct scan of abd and chest . 4// copd nicotine patch . hypercalcemia improved. decreased i.v and stopped calcitonin. altered mental status improved. hypokamia improved .boh hypercalcemia improved. decreased i.v and stopped calcitonin. altered mental status improved. hypokamia improved .boh
[2020-06-05] MEDS ORDERED: Potassium Chloride 20 MEQ Tab.ER PO SCH ×2 (09:00→15:00)
[2020-06-05] MEDS: Famotidine 20 MG Tab PO SCH (10:05)
[2020-06-05] MEDS: Nicotine 14 MG/24 Hr Patch TRDERM SCH (10:06)
[2020-06-05] MEDS: Enoxaparin 40 MG/0.4 ML Syringe SUBCUT SCH (10:06)
[2020-06-05] MEDS ORDERED: Magnesium Sulfate/Water 4 GM in Premix Bag 1 BAG IV ONE (13:21)
[2020-06-05] MEDS ORDERED: Sodium Chloride 0.9% 1,000 ML IV SCH (13:30)
[2020-06-05] MEDS ORDERED: Potassium Chloride 10 MEQ in Premix Bag 1 BAG IV SCH (13:30)
--- NOTE | 2020-06-05 13:51 | PCM.DCSUM1 ---
Discharge Summary - Hospital Course Free Text/Narrative:: admitted with hypercalcemia dehydrated a nd creat of 1.6 and k of 2.9. given fluids k and calcitonin and symptoms of altered mental status and slurred speech , a nd imbalance a nd staggering resolved. vit d level 68 and stopped topimate and ? emgalty until seen by neurology . creatinine now 1.0 and magnesium also corrected .cause of electrolyte imbalance and hypercalcemia unknown . headaches very stable during admission. other labs pending . dc home for further follow up on cause of hypercalcemia. - Discharge Data Discharge Date: 06/05/20 Discharge Disposition: Home, Self-Care 01 Condition: Good - Referral to Home Health Date of Face to Face Encounter: 06/05/20 Primary Care Physician: Jere Casanova MD - Discharge Diagnosis/Problem(s) (1) Headache on top of head SNOMED Code(s): 15450551 ICD Code: R51 - HEADACHE Status: Acute Priority: Medium Current Visit: Yes Onset Date: ~06/03/20 Problem Details: patient with severe disabling migraines on toprimax and now emgality sq med /// noted to have elavateed creat. and hco3 and altered m.s. given calcitonin and fluids and now resolved. vit d elavated and and k very low on admit. will not resrt topimax sec to hypercalcemia and electrolyte imbalance of unkown cause (2) Altered mental status SNOMED Code(s): 071621265 ICD Code: R41.82 - ALTERED MENTAL STATUS, UNSPECIFIED Status: Acute Priority: High Current Visit: Yes Onset Date: ~06/01/20 Problem Details: improved speech and cognition and no other changes on neuro exam Qualifiers: Altered mental status type: disorientation Qualified Code(s): R41.0 - Disorientation, unspecified (3) Hypercalcemia SNOMED Code(s): 60956024 ICD Code: E83.52 - HYPERCALCEMIA Status: Acute Priority: High Current Visit: Yes Onset Date: ~06/03/20 Problem Details: bring down since symptomatic with calcitonin (4) Hypokalemia SNOMED Code(s): 99256503 ICD Code: E87.6 - HYPOKALEMIA Status: Acute Priority: Medium Current Visit: Yes Onset Date: ~06/03/20 Problem Details: replace with potassium po and i.v. cause unknown and check cortisol (5) Congenital lesion of brain SNOMED Code(s): 51329633 ICD Code: Q04.9 - CONGENITAL MALFORMATION OF BRAIN, UNSPECIFIED Status: Acute Priority: Medium Current Visit: Yes Onset Date: ~06/03/20 Problem Details: repeat ct scan of head sec to hypercalcemia /// no lesions seen (6) Impairment of balance SNOMED Code(s): 461055227 ICD Code: R26.89 - OTHER ABNORMALITIES OF GAIT AND MOBILITY Status: Acute Priority: Low Current Visit: Yes Onset Date: ~06/03/20 Problem Details: resolved - Patient Summary/Data Hospital Course: admitted with hypercalcemia dehydrated a nd creat of 1.6 and k of 2.9. given fluids k and calcitonin and symptoms of altered mental status and slurred speech , a nd imbalance a nd staggering resolved. vit d level 68 and stopped topimate and ? emgalty until seen by neurology . creatinine now 1.0 and magnesium also corrected .cause of electrolyte imbalance and hypercalcemia unknown . headaches very stable during admission. other labs pending . dc home for further follow up on cause of hypercalcemia. - Patient Instructions Diet: Regular Diet as Tolerated Activity: As Tolerated Driving: Do Not Drive - Discharge Plan *PRESCRIPTION DRUG MONITORING PROGRAM REVIEWED*: Yes *COPY OF PRESCRIPTION DRUG MONITORING REPORT IN PATIENT [place]: No Home Medications: Home Meds Famotidine 20 mg PO DAILY 06/03/20 [History] Metoclopramide [Reglan] 10 mg PO QID PRN 06/03/20 [History] Famotidine [Pepcid] 20 mg PO DAILY tablet 06/05/20 [Rx] Nicotine [Habitrol] 14 mg TRDERM DAILY patch 06/05/20 [Rx] Remove Patch 0 ea TRDERM DAILY each 06/05/20 [Rx] Oxygen Therapy Mode: Room Air Forms: ED Department Discharge Referrals: Jere Casanova MD [Primary Care Provider] - - Discharge Summary/Plan Comment DC Time >30 min.: Yes - General Info Date of Service: 06/05/20 Admission Dx/Problem (Free Text: Admission Diagnosis/Problem Admission Diagnosis/Problem Hypercalcemia/mental status changes./hypokalemia Subjective Update: 06/04/20 afebrile vss i/o s appropriate to hydration. ca decreased to 10.4 calcitonin dced after second dose. / i.v decreased to 75 cc hour. k now 3.5 p.e. bouncey and word finding difficulties but better and less stammering and stuttering than yest. rest of exam normal discussed causes of hypercalcemia and new med for migraines and topimax being held for now . affect not normal per freind and will monitor when discharged for recurrent hypercalcemia . assess hypercalcemia better. hypokalemia better. confusion better . 06/05/20 plan same repeat ca in am walk and reorient today admitted with hypercalcemia dehydrated a nd creat of 1.6 and k of 2.9. given fluids k and calcitonin and symptoms of altered mental status and slurred speech , a nd imbalance a nd staggering resolved. vit d level 68 and stopped topimate and ? emgalty until seen by neurology . creatinine now 1.0 and magnesium also corrected .cause of electrolyte imbalance and hypercalcemia unknown . headaches very stable during admission. other labs pending . dc home for further follow up on cause of hypercalcemia. - Review of Systems General: Reports: No Symptoms HEENT: Reports: No Symptoms Pulmonary: Reports: No Symptoms Cardiovascular: Reports: No Symptoms Gastrointestinal: Reports: No Symptoms Genitourinary: Reports: No Symptoms Musculoskeletal: Reports: No Symptoms Skin: Reports: No Symptoms Neurological: Reports: No Symptoms Psychiatric: Reports: No Symptoms - Patient Data Vitals - Most Recent: Last Vital Signs Temp 37.0 C 06/05/20 03:19 Pulse 57 L 06/05/20 07:57 Resp 20 06/05/20 07:57 BP 138/94 H 06/05/20 07:57 Pulse Ox 99 06/05/20 07:57 Weight - Most Recent: 46.521 kg I&O - Last 24 hours: Intake & Output 06/04/20 06/05/20 06/05/20 22:59 06:59 14:59 Intake Total 400 Output Total 450 1150 Balance -50 -1150 Lab Results - Last 24 hrs: Laboratory Results - last 24 hr 06/05/20 06/05/20 Range/Units 05:45 05:55 Sodium 142 (136-145) mEq/L Potassium 3.1 L (3.5-5.1) mEq/L Chloride 108 H (98-107) mEq/L Carbon Dioxide 25 (21-32) mEq/L Anion Gap 12.1 (5-15) BUN 15 (7-18) mg/dL Creatinine 1.0 (0.55-1.02) mg/dL Est Cr Clr Drug Dosing 42.84 mL/min Estimated GFR (MDRD) 56 (>60) mL/min BUN/Creatinine Ratio 15.0 (14-18) Glucose 95 (80-115) mg/dL Calcium 9.0 (8.5-10.1) mg/dL Magnesium 1.2 L (1.8-2.4) mg/dl Med Orders - Current: Current Medications Enoxaparin Sodium (Lovenox) 40 mg SUBCUT DAILY [facility] Last Admin: 06/05/20 10:06 Dose: 40 mg Documented by: Famotidine (Pepcid) 20 mg PO DAILY [facility] Last Admin: 06/05/20 10:05 Dose: 20 mg Documented by: Magnesium Sulfate 4 gm/ Premix 50 mls @ 12.5 mls/hr IV ONETIME ONE Stop: 06/05/20 17:20 Sodium Chloride (Normal Saline) 1,000 mls @ 75 mls/hr IV ASDIRECTED [facility] Potassium Chloride 10 meq/ (Premix) 100 mls @ 100 mls/hr IV Q1H [facility] Stop: 06/05/20 15:29 Lorazepam (Ativan) 1 mg IV Q6H PRN PRN Reason: Anxiety Miscellaneous Information (Remove Patch) 0 ea TRDERM DAILY [facility] Last Admin: 06/05/20 10:10 Dose: 1 ea Documented by: Nicotine (Habitrol) 14 mg TRDERM DAILY [facility] Last Admin: 06/05/20 10:06 Dose: 14 mg Documented by: Zolpidem Tartrate (Ambien) 5 mg PO BEDTIME PRN PRN Reason: Sleep Discontinued Medications Calcitonin Ama (Miacalcin) 200 units SUBCUT Q12H [facility] Last Admin: 06/04/20 06:15 Dose: 200 units Documented by: Sodium Chloride (Normal Saline) 1,000 mls @ 1,000 mls/hr IV ASDIRECTED [facility] Last Admin: 06/03/20 13:15 Dose: 1,000 mls/hr Documented by: Lactated Ringer's (Ringers, Lactated) 1,000 mls @ 125 mls/hr IV ASDIRECTED [facility] Potassium Cl/Dextrose/Lact Ringer's (D5 Lr With 20 Meq Kcl) 1,000 mls @ 125 mls/hr IV ASDIRECTED [facility] Last Admin: 06/04/20 03:12 Dose: 125 mls/hr Documented by: Potassium Chloride 10 meq/ (Premix) 100 mls @ 100 mls/hr IV Q1H [facility] Stop: 06/03/20 22:59 Last Admin: 06/04/20 02:10 Dose: Not Given Documented by: Potassium Chloride 10 meq/ (Premix) 0 mls @ 100 mls/hr IV Q1H [facility] Stop: 06/05/20 14:31 Potassium Chloride (Klor-Con M20) 40 meq PO ONETIME ONE Stop: 06/03/20 13:03 Last Admin: 06/03/20 13:15 Dose: 40 meq Documented by: Potassium Chloride (Klor-Con M20) 20 meq PO TID [facility] Stop: 06/04/20 23:00 Last Admin: 06/04/20 20:06 Dose: 20 meq Documented by: Potassium Chloride (Klor-Con M20) 20 meq PO DAILY [facility] Last Admin: 06/05/20 10:05 Dose: 20 meq Documented by: Potassium Chloride (Klor-Con M20) 20 meq PO TID [facility]THE[facility] - Exam General: Reports: Alert, Oriented HEENT: Reports: Pupils Equal, Pupils Reactive, EOMI, Mucous Membr. Moist/[place] Neck: Reports: Supple Lungs: Reports: Clear to Auscultation, Normal Respiratory Effort Cardiovascular: Reports: Regular Rate, Regular Rhythm GI/Abdominal Exam: Normal Bowel Sounds, Soft, Non-Tender, No Organomegaly, No Distention, No Abnormal Bruit, No Mass, Pelvis Stable (Female) Exam: Normal External Exam, Normal Speculum Exam, Normal Bimanual Exam Rectal (Female) Exam: Normal Exam, Normal Rectal Tone Back Exam: Reports: Normal Inspection, Full Range of Motion Extremities: Normal Inspection, Normal Range of Motion, Non-Tender, No Pedal Edema, Normal Capillary Refill Skin: Reports: Warm, Dry, Intact Wound/Incisions: Reports: Healing Well Neurological: Reports: No New Focal Deficit Psy/Mental Status: Reports: Alert, Normal Affect, Normal Mood
[2020-06-05] MEDS: Potassium Chloride 10 MEQ in Premix Bag 1 BAG IV SCH ×2 (14:05→15:30)
== END 2020-06-05 18:05 | disposition home or self-care (01) | DRG 683 ==
LOC: JD.ED 11:48 → JD.MS 14:50 → OBSVTOIN 16:26
PROVIDERS: ADMIT Pediatrics; ATTEND Pediatrics
DX: N17.9 Acute kidney failure, unspecified (principal); Q04.6 Congenital cerebral cysts; I67.4 Hypertensive encephalopathy; E83.52 Hypercalcemia; E86.0 Dehydration; E87.6 Hypokalemia; K21.9 Gastro-esophageal reflux disease without esophagitis; F17.210 Nicotine dependence, cigarettes, uncomplicated; J44.9 Chronic obstructive pulmonary disease, unspecified; G43.909 Migraine, unspecified, not intractable, without status migrainosus; R26.89 Other abnormalities of gait and mobility; Z20.828 Contact with and (suspected) exposure to other viral communicable diseases; Z79.899 Other long term (current) drug therapy; Z90.49 Acquired absence of other specified parts of digestive tract; N18.9 Chronic kidney disease, unspecified
CPT/HCPCS: 36415; 70450; 70450-26; 71046; 71046-26; 80048; 80053; 80306; 81001; 82088; 82306; 82340; 82436; 82533; 82607; 83735; 83970; 84100; 84244; 84443; 84484; 85025; 85379; 87086; 93005; 93010; 96360; 99284; 99285-25; A9270-GY; J0630; J1650; J3475; J3480; J7030; U0002